=== PATIENT | female | born 1985 | race Caucasian/White ===

== ENCOUNTER 2024-03-24 17:17 | Inpatient (IN) | payer BC ==
[2024-03-24] MEDS ORDERED: NA CHLORIDE 0.9% 250 ML ONE (18:26)
--- NOTE | 2024-03-24 18:39 | RAD REPORT ---
EXAMINATION: US bilateral LOWER EXTREMITY VENOUS DOPPLER CLINICAL INDICATION: Leg pain TECHNIQUE: Sonographic evaluation of the veins of the lower extremity bilaterally formed.Grayscale, c olor and spectral analysis performed on all vessels COMPARISON: No prior exam. FINDINGS: The common femoral, superficial femoral, greater saphenous, popliteal and posterior tibial veins bila terally are compressible and demonstrate augmentation. Doppler demonstrates good flow. 2 x 1 cm anechoic structure left groin IMPRESSION: No evidence of deep venous thrombosis involving either lower extremity 2 x 1 cm anechoic structure left groin may represent a remote hematoma. Follow-up ultrasound could be obtained in 3 months for reevaluation
[2024-03-24 18:40] LABS: Specific Gravity < 1.005 (1.005-1.030); Sqamous Epithelial <5 /HPF (None Seen); Urine Bacteria <20 /HPF (<20); Urine Bilirubin NEGATIVE (Negative); Urine Blood Negative (Negative); Urine Clarity Extremely Turbid (Clear); Urine Color Colorless (Yellow); Urine Crystals Unidentified Few /HPF (None Seen); Urine Culture Reflex Order NOT NEEDED; Urine Glucose NEGATIVE (Negative); Urine Ketones NEGATIVE (Negative); Urine Microscopic Reflex YN ORDER UMIC; Urine Mucus Slight /HPF (None Seen); Urine Nitrite NEGATIVE (Negative); Urine Protein NEGATIVE (Negative); Urine RBC <5 /HPF (None Seen); Urine Urobilinogen Normal (Normal); Urine WBC <5 /HPF (<5)
[2024-03-24 18:41] LABS: Hematocrit 29.8 % (36.0-45.0); RBC Red Blood Cell Count 2.91 M/uL (3.86-4.86)
[2024-03-24 18:42] LABS: Absolute Basophils 0.1 K/uL (0-0.5); Absolute Lymphocytes (CBC) 1.5 K/uL (0.7-4.9); Absolute Monocytes 0.3 K/uL (0.1-1.3); Absolute Neutrophil 3.4 K/uL (1.8-8.0); Basophils % 1.6 % (0-1.3); Eosinophils % 0.8 % (0-4.4); Lymphocytes % 28.5 % (15.3-44.8); MCH 34.5 pg (27.0-35.0); MCHC 33.7 g/dL (32.0-36.0); MCV 102.5 fL (80-100); MPV 7.7 fL (7.6-11.3); Monocytes % 5.6 % (3.3-12.3); Neutrophils % 63.5 % (41.7-73.7); Nucleated Red Blood Cells % 0.1 % (0-0); Platelets 355 thou/uL (152-406)
[2024-03-24] MEDS ORDERED: HYDROMORPHONE HCL 1 MG/ML INJ ONE ×2 (18:53→20:34)
[2024-03-24] MEDS ORDERED: ONDANSETRON 4 MG/2 ML VIAL ONE (18:53)
[2024-03-24 19:11] LABS: Protime INR 1.17
[2024-03-24] MEDS ORDERED: DIAZEPAM 5 MG TABLET ONE (19:20)
[2024-03-24 19:29] LABS: Albumin 2.3 g/dL (3.4-5.0); Albumin/Globulin Ratio 0.7 (1.1-1.8); Anion Gap 9.5 mEq/L (5.0-15.0); Bilirubin Direct 0.2 mg/dL (0-0.2); Bilirubin Indirect, Calculated 0.2 mg/dL (0.2-0.8); Bilirubin Total 0.4 mg/dL (0.2-1.0); Globulin 3.2 g/dL (2.3-3.5); Potassium 3.5 mEq/L (3.5-5.1); Protein, Total 5.5 g/dL (6.4-8.2); Troponin High Sensitivity 6.6 pg/mL (<58.9)
--- NOTE | 2024-03-24 20:43 | RAD REPORT ---
EXAMINATION: CTA CHEST PE CLINICAL INDICATION: Shortness of breath TECHNIQUE: 100 cc 370 Isovue administered intravenously. This examination was performed according to an angiographic protocol with 3D post-processing. This involves 3D reconstructions, MIPs, volume rendered images and/or shaded surface rendering. One or more of the following dose reduction techniqu es were used: Automated exposure control, adjustment of the mA and/or kV according to patient size, and/or iterative reconstruction. Unless otherwise specified, incidental findings do not require dedic ated imaging follow-up. [id number]. COMPARISON: No prior exam. FINDINGS: A pulmonary embolus is not seen. An aortic aneurysm not noted. Small right pleural effusion. .No pericardial effusion.. Mild right hilar lymphadenopathy. Moderate patchy groundglass opacities scattered throughout the right lung. IMPRESSION: No evidence of a pulmonary embolism Moderate patchy groundglass opacities right lung may indicate aspiration pneumonitis or pneumonia.
--- NOTE | 2024-03-24 20:45 | RAD REPORT ---
Procedure: Chest Single View HISTORY: Shortness of breath COMPARISON: none FINDINGS: Patchy right lung opacities. Left lung appears clear. The heart is normal size. IMPRESSION: Patchy right lung opacities may indicate aspiration pneumonitis or pneumonia
--- NOTE | 2024-03-24 20:53 | EDPHYS ---
Physician Documentation [facility] Name: Micheline Adler Age: 38 yrs Sex: Female : 1985 Arrival Date: 03/24/2024 Time: 17:17 Bed 2 Private MD: ED Physician Teodoro Myers HPI: 03/24 18:26 This 38 yrs old Female presents to ER via Ambulatory with complaints of pieter Breathing Difficulty. 18:26 The patient has shortness of breath at rest, with light activity. Onset: The pieter symptoms/episode began/occurred 3 day(s) ago. Duration: The symptoms are continuous, and are steadily getting worse. The patient's shortness of breath is aggravated by supine position, is alleviated by rest, sitting up. Associated signs and symptoms: The patient has no apparent associated signs or symptoms. Severity of symptoms: At their worst the symptoms were mild moderate in the emergency department the symptoms are unchanged. The patient has experienced similar episodes in the past, a few times. 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 - Infectious Disease History:: Denies. - Social history:: Smoking status: Patient denies any tobacco usage or history of. ROS: 18:28 Constitutional: Negative for fever, chills, and weight loss, Eyes: Negative for injury, pieter pain, redness, and discharge, ENT: Negative for injury, pain, and discharge, Neck: Negative for injury, pain, and swelling, Cardiovascular: Negative for chest pain, palpitations, and edema, Abdomen/GI: Negative for abdominal pain, nausea, vomiting, diarrhea, and constipation, Back: Negative for injury and pain, : Negative for injury, bleeding, discharge, and swelling, Skin: Negative for injury, rash, and discoloration, Neuro: Negative for headache, weakness, numbness, tingling, and seizure, Psych: Negative for depression, anxiety, suicide ideation, homicidal ideation, and hallucinations, Allergy/Immunology: Negative for hives, rash, and allergies, Endocrine: Negative for neck swelling, polydipsia, polyuria, polyphagia, and marked weight changes, Hematologic/Lymphatic: Negative for swollen nodes, abnormal bleeding, and unusual bruising, 18:28 Cardiovascular: Positive for edema, orthopnea, 18:28 Respiratory: Positive for cough, shortness of breath, at rest. Exam: 18:28 Constitutional: This is a well developed, well nourished patient who is awake, alert, pieter and in no acute distress. Head/Face: Normocephalic, atraumatic. Eyes: Pupils equal round and reactive to light, extra-ocular motions intact. Lids and lashes normal. Conjunctiva and sclera are non-icteric and not injected. Cornea within normal limits. Periorbital areas with no swelling, redness, or edema. ENT: Nares patent. No nasal discharge, no septal abnormalities noted. Tympanic membranes are normal and external auditory canals are clear. Oropharynx with no redness, swelling, or masses, exudates, or evidence of obstruction, uvula midline. Mucous membranes moist. Neck: Trachea midline, no thyromegaly or masses palpated, and no cervical lymphadenopathy. Supple, full range of motion without nuchal rigidity, or vertebral point tenderness. No Meningismus. Chest/axilla: Normal chest wall appearance and motion. Nontender with no deformity. No lesions are appreciated. Respiratory: Lungs have equal breath sounds bilaterally, clear to auscultation and percussion. No rales, rhonchi or wheezes noted. No increased work of breathing, no retractions or nasal flaring. Abdomen/GI: Soft, non-tender, with normal bowel sounds. No distension or tympany. No guarding or rebound. No evidence of tenderness throughout. Back: No spinal tenderness. No costovertebral tenderness. Full range of motion. Skin: Warm, dry with normal turgor. Normal color with no rashes, no lesions, and no evidence of cellulitis. MS/ Extremity: Pulses equal, no cyanosis. Neurovascular intact. Full, normal range of motion., bilateral aka Neuro: Awake and alert, GCS 15, oriented to person, place, time, and situation. Cranial nerves II-XII grossly intact. Motor strength 5/5 in all extremities. Sensory grossly intact. Cerebellar exam normal. Normal gait. Psych: Awake, alert, with orientation to person, place and time. Behavior, mood, and affect are within normal limits. 18:28 Cardiovascular: Rate: normal, actual rate is 87 bpm, Rhythm: regular, Pulses: no pulse deficits are appreciated, Heart sounds: normal, Edema: is not appreciated, JVD: is not appreciated, 18:28 ECG was reviewed by the Attending Physician. 18:40 ECG was reviewed by the Attending Physician. [facility] Vital Signs: 17:20 BP 111 / 76; Pulse 80; Resp 16; Pulse Ox 96% ; cm10 17:32 BP 111 / 76; Pulse 87; Resp 18 S; Pulse Ox 100% on R/A; Weight 81.65 kg; Height 5 ft. 4 iw in. ; Pain 8/10; 18:00 BP 120 / 75; Pulse 90; Resp 17; Pulse Ox 94% ; cm10 19:00 BP 102 / 63; Pulse 77; Resp 16; Pulse Ox 94% ; cm10 20:34 BP 112 / 75; Pulse 81; Resp 16; Pulse Ox 95% ; cm10 22:15 BP 100 / 60; Pulse 73; Resp 20; Pulse Ox 100% on Nebulizer Mask; ay 22:30 BP 98 / 60; Pulse 88; Resp 16; Pulse Ox 100% ; cm10 17:32 Body Mass Index 30.90 (81.65 kg, 162.56 cm) iw 17:32 Pain Scale: Adult iw MDM: 17:23 Medical Screening Exam initiated pieter 18:29 Differential diagnosis: dislocation, contusion, abrasion, Anemia Anxiety Reaction pieter asthma, CHF exacerbation, Myocardial Infarction pneumonia, Psychogenic pulmonary edema, Pulmonary Embolism reactive airway disease, Sepsis Unstable Angina. Antibiotic administration:. Immunization status:. Data reviewed: vital signs, nurses notes, lab test result(s), EKG, radiologic studies, CT scan, doppler, plain films. Consideration of Admission/Observation Escalation of care including admission/observation considered. I considered the following discharge prescriptions or medication management in the emergency department Medications were administered in the Emergency Department. See MAR. Independent interpretation of the following test(s) in the Emergency Department EKG: See my EKG interpretation above CT Scan: My interpretation is ct pe. Test considered but Not performed: Ultrasound 2 d echo. Historians other than the Patient: Spouse/Significant Other: spouce well informed. Care significantly affected by the following chronic conditions: Obesity, on xarelto. Counseling: I had a detailed discussion with the patient and/or guardian regarding the historical points, exam findings, and any diagnostic results supporting the discharge/admit diagnosis, lab results, radiology results. 03/24 17:26 Order name: Basic Metabolic Panel; Complete Time: 19:[address] [facility] 03/24 17:26 Order name: CBC with Diff; Complete Time: 19:[address] [facility] 03/24 17:26 Order name: LFT's; Complete Time: 19:[address] [facility] 03/24 17:26 Order name: Magnesium; Complete Time: 19:[address] [facility] 03/24 17:26 Order name: NT PRO-BNP; Complete Time: 19:[address] [facility] 03/24 17:26 Order name: PT-INR; Complete Time: 19:[address] [facility] 03/24 17:26 Order name: Troponin HS; Complete Time: 19:[address] [facility] 03/24 17:26 Order name: Urinalysis w/ reflexes; Complete Time: 18:[address] [facility] 03/24 17:26 Order name: Lipase; Complete Time: 19:[address] [facility] 03/24 20:41 Order name: Blood Culture Adult (2) [facility] 03/24 21:11 Order name: Lactate w/ 2H reflex if indic. [facility] 03/24 21:11 Order name: Magnesium [facility] 03/24 21:11 Order name: Phosphorus [facility] 03/24 21:11 Order name: Basic Metabolic Panel [facility] 03/24 21:11 Order name: Basic Metabolic Panel [facility] 03/24 21:11 Order name: CBC with Automated Diff [facility] 03/24 21:11 Order name: CBC with Automated Diff [facility] 03/24 21:11 Order name: Lipid Profile [facility] 03/24 21:11 Order name: Lipid Profile [facility] 03/24 21:14 Order name: Procalcitonin [facility] 03/24 17:26 Order name: XRAY Chest (1 view) [facility] 03/24 17:26 Order name: CT Chest For PE Angio [facility] 03/24 17:39 Order name: US Extremity Venous W Compression Donny; Complete Time: 18:[address] [facility] 03/24 20:54 Order name: INCENTIVE SPIROMETRY [facility] 03/24 17:26 Order name: Cardiac monitoring; Complete Time: 18:[address] [facility] 03/24 17:26 Order name: EKG - Nurse/Tech; Complete Time: 18:[address] [facility] 03/24 17:26 Order name: IV Saline Lock; Complete Time: 18:[address] [facility] 03/24 17:26 Order name: Labs collected and sent; Complete Time: 18:[address] [facility] 12/04 17:26 Order name: O2 Per Protocol; Complete Time: 18:36 pieter 03/24 17:26 Order name: O2 Sat Monitoring; Complete Time: 18:36 pieter 04 18:45 Order name: Labs - recollect needed: blue, green; Complete Time: 19:03 iw 03/24 19:47 Order name: PO challenge: juice; Complete Time: 20:43 pieter EC:40 Rate is 77 beats/min. Rhythm is regular. QRS [place] is Normal. [place] interval is normal. QRS pieter interval is normal. QT interval is normal. No Q waves. T waves are Normal. No ST changes noted. Clinical impression: NSR w/ Non-specific ST/T Changes and No evidence of ischemia. Interpreted by me. Reviewed by me. Administered Medications: 17:39 CANCELLED (Duplicate Order): ns 0.9% 1000 ml IV at 1000 ml once; to be given as a bolus pieter over 60 minutes 18:47 Drug: NS 0.9% IV 250 ml IV at 75 ml/hr once; to be given as a bolus over 30 minutes cm10 Route: IV; Rate: 75 ml/hr; Site: left forearm; 22:24 Follow up: IV Status: Completed infusion; IV Intake: 250ml ay 19:03 Drug: HYDROmorphone IVP 1 mg IVP once Route: IVP; Site: left forearm; cm10 19:33 Follow up: Response: No adverse reaction cm10 19:03 Drug: Ondansetron IVP 4 mg IVP once; over 2 minutes Route: IVP; Site: left forearm; cm10 19:33 Follow up: Response: No adverse reaction cm10 19:27 Drug: Diazepam PO 10 mg PO once Route: PO; ay 19:32 Follow up: Response: No adverse reaction ay 20:40 Drug: HYDROmorphone IVP 1 mg IVP once Route: IVP; Site: left forearm; ay 20:43 Follow up: Response: No adverse reaction ay 21:52 Drug: Piperacillin-Tazobactam IVPB 3.375 grams IVPB once over 60 mins; (mix in NS 100 ay mL) Route: IVPB; Infused Over: 60 mins; Site: left forearm; 22:48 Follow up: Response: No adverse reaction; IV Status: Completed infusion; IV Intake: cm10 100ml 21:53 Drug: Amoxicillin-Clavulanate PO 875 mg PO once Route: PO; ay 22:14 Follow up: Response: No adverse reaction ay 22:13 Drug: Famotidine IVP 20 mg IVP once; dilute with 10 mL 0.9% NaCl; give over 2 minutes ay Route: IVP; Site: left forearm; 22:14 Follow up: Response: No adverse reaction ay 22:14 Drug: Levalbuterol Inhalation 2.5 mg Inhalation once Route: Inhalation; ay 22:50 Follow up: Response: No adverse reaction cm10 22:14 Drug: Ipratropium Inhalation Aerosol 0.5 mg Inhalation once Route: Inhalation; ay 22:14 Follow up: Response: No adverse reaction ay 22:48 Not Given (Duplicate Order): hydromorphone1 mg IVP once cm10 Disposition Summary: 03/24/24 20:53 Hospitalization Ordered Notes: Hospitalization Status: Observation pieter Provider: Prince pieter Stokes Location: Telemetry/MedSurg (observation) pieter Condition: Stable pieter Problem: an ongoing problem pieter Symptoms: have worsened pieter Bed/Room Type: Standard [facility] Room Assignment: 223(03/24/24 22:02) rv1 Diagnosis - Dyspnea pieter - Pneumonia due to other specified bacteria - aspiration, moderate patchy pieter - Chest pain, unspecified pieter - Pleurisy pieter - USP (current) use of anticoagulants - XARELTO pieter Forms: - Medication Reconciliation Form pieter - SBAR form pieter - Leadership Thank You Letter pieter Signatures: Dispatcher [employer] EDMS Teodoro Myers MD MD cha Williams, Irene, RN RN iw Villegas, Rebecca rv1 Felicia Harper RN RN cm10 Paulino Aguilar RN RN ay Corrections: (The following items were deleted from the chart) 17:26 17:26 Chest Single View+RAD.RAD.BRZ ordered. EDMS EDMS 17:26 17:26 Chest For PE Angio+CT.RAD.BRZ ordered. EDDC EDMS 17:39 17:26 NS 0.9% IV 1000 ml IV at 1000 ml once; to be given as a bolus over 60 minutes pieter ordered. pieter 20:42 20:42 BLOOD CULTURE*+BA.LAB.BRZ ordered. EDMS EDMS 22:02 20:53 pieter rv1
--- NOTE | 2024-03-24 20:53 | ER ---
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 Coronavirus screen: Client presents with at least one sign or symptom that may indicate coronavirus-19. Ebola Screen: No symptoms or risks identified at this time. Initial Sepsis Screen: Does the patient meet any 2 criteria? No. Patient's initial sepsis screen is negative. Does the patient have a suspected source of infection? No. Patient's initial sepsis screen is negative. Risk Assessment: Do you want to hurt yourself or someone else? Patient reports no desire to harm self or others. Onset of symptoms was March 14, 2024. 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 - Infectious Disease History:: Denies. - Social history:: Smoking status: Patient denies any tobacco usage or history of. Screenin:04 [facility] ED Fall Risk Assessment (Adult) History of falling in the last 3 months, cm10 including since admission No falls in past 3 months (0 pts) Confusion or Disorientation No (0 pts) Intoxicated or Sedated No (0 pts) Impaired Gait No (0 pts) Mobility Assist Device Used No (0 pt) Altered Elimination No (0 pt) Score/Fall Risk Level 0 - 2 = Low Risk Oriented to surroundings, Maintained a safe environment, Hourly rounding (assess needs \T\ fall precautionary measures) done. Abuse screen: Denies threats or abuse. Denies injuries from another. Nutritional screening: No deficits noted. Tuberculosis screening: No symptoms or risk factors identified. Assessment: 19:03 General: Appears in no apparent distress. comfortable, Behavior is calm, cooperative. cm10 Pain: Complains of pain in right leg and left leg. Cardiovascular: No deficits noted. Heart tones present Patient's skin is warm and dry. Cardiovascular: Rhythm is regular. Respiratory: Airway is patent Respiratory effort is even, unlabored, Respiratory pattern is regular, symmetrical, Breath sounds are clear bilaterally. Vital Signs: 17:20 BP 111 / 76; Pulse 80; Resp 16; Pulse Ox 96% ; cm10 17:32 BP 111 / 76; Pulse 87; Resp 18 S; Pulse Ox 100% on R/A; Weight 81.65 kg; Height 5 ft. 4 iw in. ; Pain 8/10; 18:00 BP 120 / 75; Pulse 90; Resp 17; Pulse Ox 94% ; cm10 19:00 BP 102 / 63; Pulse 77; Resp 16; Pulse Ox 94% ; cm10 20:34 BP 112 / 75; Pulse 81; Resp 16; Pulse Ox 95% ; cm10 22:15 BP 100 / 60; Pulse 73; Resp 20; Pulse Ox 100% on Nebulizer Mask; ay 22:30 BP 98 / 60; Pulse 88; Resp 16; Pulse Ox 100% ; cm10 17:32 Body Mass Index 30.90 (81.65 kg, 162.56 cm) iw 17:32 Pain Scale: Adult iw ED Course: 17:18 Patient arrived in ED. mr 17:23 Teodoro Myers MD is Attending Physician. pieter 17:23 Ashley Sams, RN is Primary Nurse. ko1 17:34 Triage completed. iw 17:35 Arm band placed on. iw 17:48 XRAY Chest (1 view) In Process Unspecified. EDMS 18:27 US Extremity Venous W Compression Donny In Process Unspecified. EDMS 18:47 Accessed peripheral vein via ultrasound, utilizing dynamic ultrasound technique Clean \T\ cm10 dry. Dressing intact. Good blood return. Flushes easily. 20G left forearm. Missed attempt(s): 20 gauge in right forearm. Bleeding controlled, band aid applied, catheter tip intact. 18:53 Radiology exam delayed due to IV insertion attempt and/or patient not having nj appropriate IV at this time. 18:53 Radiology exam delayed due to lab results not completed at this time. (BUN/Creatinine). nj 18:53 Radiology exam delayed due to test not completed at this time. nj 19:04 Patient has correct armband on for positive identification. Placed in gown. Bed in low cm10 position. Call light in reach. Side rails up X2. Provided Education on: ER process and procedures.. 19:17 Paulino Aguilar, RN is Primary Nurse. ay 20:17 CT Chest For PE Angio In Process Unspecified. EDMS 20:50 Prince Stokes MD is Hospitalizing Provider. pieter 23:23 No provider procedures requiring assistance completed. Patient admitted, IV remains in cm10 place. Administered Medications: 17:39 CANCELLED (Duplicate Order): ns 0.9% 1000 ml IV at 1000 ml once; to be given as a bolus pieter over 60 minutes 18:47 Drug: NS 0.9% IV 250 ml IV at 75 ml/hr once; to be given as a bolus over 30 minutes cm10 Route: IV; Rate: 75 ml/hr; Site: left forearm; 22:24 Follow up: IV Status: Completed infusion; IV Intake: 250ml ay 19:03 Drug: HYDROmorphone IVP 1 mg IVP once Route: IVP; Site: left forearm; cm10 19:33 Follow up: Response: No adverse reaction cm10 19:03 Drug: Ondansetron IVP 4 mg IVP once; over 2 minutes Route: IVP; Site: left forearm; cm10 19:33 Follow up: Response: No adverse reaction cm10 19:27 Drug: Diazepam PO 10 mg PO once Route: PO; ay 19:32 Follow up: Response: No adverse reaction ay 20:40 Drug: HYDROmorphone IVP 1 mg IVP once Route: IVP; Site: left forearm; ay 20:43 Follow up: Response: No adverse reaction ay 21:52 Drug: Piperacillin-Tazobactam IVPB 3.375 grams IVPB once over 60 mins; (mix in NS 100 ay mL) Route: IVPB; Infused Over: 60 mins; Site: left forearm; 22:48 Follow up: Response: No adverse reaction; IV Status: Completed infusion; IV Intake: cm10 100ml 21:53 Drug: Amoxicillin-Clavulanate PO 875 mg PO once Route: PO; ay 22:14 Follow up: Response: No adverse reaction ay 22:13 Drug: Famotidine IVP 20 mg IVP once; dilute with 10 mL 0.9% NaCl; give over 2 minutes ay Route: IVP; Site: left forearm; 22:14 Follow up: Response: No adverse reaction ay 22:14 Drug: Levalbuterol Inhalation 2.5 mg Inhalation once Route: Inhalation; ay 22:50 Follow up: Response: No adverse reaction cm10 22:14 Drug: Ipratropium Inhalation Aerosol 0.5 mg Inhalation once Route: Inhalation; ay 22:14 Follow up: Response: No adverse reaction ay 22:48 Not Given (Duplicate Order): hydromorphone1 mg IVP once cm10 Medication: 23:23 VIS not applicable for this client. cm10 Intake: 22:24 IV: 250ml; Total: 250ml. ay 22:48 IV: 100ml; Total: 350ml. cm10 Outcome: 20:53 Decision to Hospitalize by Provider. pieter 23:23 Admitted to Med/surg accompanied by tech, via wheelchair, room 223, cm10 23:23 Condition: good 23:23 Instructed on the need for admit, 23:24 Patient left the ED. cm10 Signatures: Dispatcher [employer] EDTeodoro Jameson MD MD cha Rivera, Mary, Reg Reg mr Kim Montemayor, RN Srinath Santos Kathy, RN RN ko1 Martinez, Clarissa, RN RN cmPaulino Gandhi RN ALEXUS isaac Corrections: (The following items were deleted from the chart) 17:35 17:32 Chief complaint: Patient states: had a lipoma removed a week and half ago, has hx iw of GERD, felt like she aspirated after the surgery, had low O2 sats, has been on antibiotics, still feels SOB iw
[2024-03-24] MEDS ORDERED: AMOX/K CLAV 875 MG TAB ONE (20:54)
[2024-03-24] MEDS ORDERED: PIPERACIL/TAZO 3.375 GM VIAL IV ONE (20:55)
[2024-03-24] MEDS ORDERED: NA CHLORIDE 0.9% 100 ML ONE (20:55)
[2024-03-24] MEDS ORDERED: ACETAMINOPHEN 500 MG TAB PO PRN (21:07)
[2024-03-24] MEDS ORDERED: ALBUTEROL 2.5 MG/3 ML NEB SOL NEB PRN (21:07)
[2024-03-24] MEDS ORDERED: IPRATROPIUM BROM 0.5MG/2.5ML NEB PRN (21:07)
[2024-03-24] MEDS ORDERED: ONDANSETRON 4 MG/2 ML VIAL IV PRN (21:07)
--- NOTE | 2024-03-24 21:32 | P.HP ---
Certification for Inpatient Patient admitted to: Inpatient With expected LOS: >2 Midnights Practitioner: I am a practitioner with admitting privileges, knowledge of patient current condition, hospital course, and medical plan of care. 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 She also has a history of GERD and suspected esophageal motility disorder. She suspects she aspirated 5 days ago. She developed subjective fever, chills, shortness of breath. She gave herself a dose of IM ceftriaxone followed by a short course of Zpack. Unfortunately, her symptoms persisted. CTA chest ruled out PE but revealed aspiration PNA. Physical Examination - Physical Exam General: Acute distress HEENT: Atraumatic, Normocephalic Respiratory: Normal air movement Cardiovascular: No edema, Normal pulses, Regular rate/rhythm, Normal S1 S2 Musculoskeletal: No clubbing, No swelling, No contractures, No erythema, No ten derness, No warmth Integumentary: No rashes, No breakdown, No significant lesion, No tenderness/swelling, No erythema, No warmth Neurological: Normal speech - Studies Laboratory Data (last 24 hrs) 03/24/24 03/24/24 03/24/24 19:01 19:01 18:30 WBC 5.40 Hgb 10.0 L Hct 29.8 L Plt Count 355 PT 13.0 H INR 1.17 Sodium 144 Potassium 3.5 BUN 6 L Creatinine 0.54 L Glucose 65 L Magnesium 2.0 Total Bilirubin 0.4 AST 22 ALT 26 Alkaline Phosphatase 158 H Lipase 17 Assessment and Plan - Problems (Diagnosis) (1) Aspiration pneumonia due to gastric secretions Current Visit: Yes Status: Acute (2) GERD (gastroesophageal reflux disease) Current Visit: Yes Status: Acute (3) Esophageal motility disorder Current Visit: Yes Status: Acute - Plan Assessment Patient is 38 year old female currently being admitted for community acquired PNA after she failed outpatient therapy with IM ceftraixone and a short course of Azithromycin Aspiration pneumonia/pneumonitis GERD Esophageal motility disorder PLAN: Will admit inpatient Start Unasyn Follow blood cx sent by ER Sputum cx ordered IV PPI Patient is followed by GI as outpatient. 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 Patient wishes to take her pain meds brought from home. - Advance Directives Does patient have a Living Will: No Does patient have a Durable POA for Healthcare: No
[2024-03-24] MEDS ORDERED: SODIUM CHLORIDE 0.9% 10ML INJ IV PRN (21:37)
[2024-03-24] MEDS ORDERED: IPRATROPIUM BROM 0.5MG/2.5ML ONE (21:59)
[2024-03-24] MEDS ORDERED: LEVALBUTEROL 1.25 MG/3 ML NEB ONE (21:59)
[2024-03-24] MEDS ORDERED: FAMOTIDINE 20 MG/2 ML VIAL IV ONE (22:00)
[2024-03-25] MEDS: AMPICILLIN/SULBACT 3 GM in NA CHLORIDE 0.9% 100 ML IVPB SCH
[2024-03-25] MEDS: ALPRAZOLAM 1 MG TABLET ONE (00:10)
[2024-03-25] MEDS: PANTOPRAZOLE 40 MG INJ ONE (00:10)
[2024-03-25] MEDS: RIVAROXABAN 20 MG TABLET PO ONE (00:10)
[2024-03-25] MEDS: NA CHLORIDE 0.9% 1,000 ML ONE (00:10)
[2024-03-25] MEDS: AMPICILLIN/SULBACTAM 3GM/VIAL ONE (00:11)
[2024-03-25] MEDS: NA CHLORIDE 0.9% 100 ML ONE (00:11)
[2024-03-25] MEDS: HOME MED 1 EA UNK (Fluoxetine Hcl [Fluoxetine Hcl] 60 MG Tablet) PO SCH (00:15)
[2024-03-25] MEDS: RIVAROXABAN 20 MG TABLET PO SCH (00:19)
[2024-03-25] MEDS: ALPRAZOLAM 1 MG TABLET PO SCH (00:20)
[2024-03-25] MEDS: PANTOPRAZOLE 40 MG INJ IVP SCH (00:20)
[2024-03-25] MEDS: NA CHLORIDE 0.9% 1,000 ML IV SCH (00:21)
[2024-03-25] MEDS: FLUOXETINE 20 MG CAP ONE (00:23)
[2024-03-25 01:43] VITALS: BMI 32.5
[2024-03-25] MEDS: FLUOXETINE 20 MG CAP PO SCH (06:00)
[2024-03-25] MEDS ORDERED: OXYCODONE *CR* 10 MG TAB PO SCH (07:00)
[2024-03-25 07:42] LABS: Absolute Lymphocytes (CBC) 1.9 K/uL (0.7-4.9); Absolute Monocytes 0.3 K/uL (0.1-1.3); Absolute Neutrophil 2.1 K/uL (1.8-8.0); Basophils % 0.9 % (0-1.3); Eosinophils % 0.8 % (0-4.4); Hematocrit 24.2 % (36.0-45.0); Hemoglobin 8.1 g/dL (12.0-15.0); Lymphocytes % 43.5 % (15.3-44.8); MCH 34.2 pg (27.0-35.0); MCHC 33.3 g/dL (32.0-36.0); MCV 102.7 fL (80-100); MPV 7.4 fL (7.6-11.3); Monocytes % 7.4 % (3.3-12.3); Neutrophils % 47.4 % (41.7-73.7); Platelets 282 thou/uL (152-406); RBC Red Blood Cell Count 2.36 M/uL (3.86-4.86); Red Cell Distribution Width 13.1 % (12.1-15.2)
[2024-03-25 07:52] LABS: Anion Gap 6.5 mEq/L (5.0-15.0); Phosphorus 4.2 mg/dL (2.5-4.9); Potassium 3.5 mEq/L (3.5-5.1)
[2024-03-25] MEDS: CETIRIZINE HCL 5 MG TABLET PO SCH (08:15)
[2024-03-25] MEDS: ENOXAPARIN 40 MG/0.4 ML SQ SCH (08:15)
[2024-03-25] MEDS ORDERED: HOME MED 1 EA UNK (Omeprazole [Prilosec] 40 MG Capsule.Dr) PO SCH (09:00)
[2024-03-25 09:29] VITALS: O2SAT 95
[2024-03-25] MEDS: MORPHINE 4 MG/ML SYR ONE (09:59)
[2024-03-25] MEDS: MORPHINE 4 MG/ML SYR IV PRN (10:07)
--- NOTE | 2024-03-25 10:51 | P.DS ---
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 She also has a history of GERD and suspected esophageal motility disorder. She suspects she aspirated 5 days ago. She developed subjective fever, chills, shortness of breath. She gave herself a dose of IM ceftriaxone followed by a short course of Zpack. Unfortunately, her symptoms persisted. CTA chest ruled out PE but revealed aspiration PNA. She was admitted on general medical floor. Hospital Course: She was started on Unasyn and nebulizer, she has a good oxygenation 95% by pulse oximetry on room air, remained afebrile, no leukocytosis. She will be discharged with Augmentin 875/125 twice daily for 5 days along with albuterol inhaler as needed for shortness of breath. She is to follow with her GI doctor after discharge. #1 aspiration pneumonia with no sepsis CTA of the chest, chest x-ray showed mild infiltration of the right lung field. #2 history of esophageal motility disorder with GERD #3 acute on chronic anemia after recent cosmetic surgery. Hemoglobin down to 8.1 from 10.0, no clinical bleeding, no transfusion indicated. Vital Signs/Physical Exam: Temp Pulse Resp BP Pulse Ox 97.7 F 85 18 88/50 L 95 03/25/24 04:00 03/25/24 04:00 03/25/24 10:32 03/25/24 04:00 03/25/24 10:32 Laboratory Data at Discharge: WBC 4.30 thou/uL (4.3-10.9) 03/25/24 07:26 Hgb 8.1 g/dL (12.0-15.0) L D 03/25/24 07:26 Hct 24.2 % (36.0-45.0) L 03/25/24 07:26 Plt Count 282 thou/uL (152-406) 03/25/24 07:26 PT 13.0 SECONDS (9.4-12.5) H 03/24/24 19:01 INR 1.17 03/24/24 19:01 Sodium 142 mEq/L (136-145) 03/25/24 07:26 Potassium 3.5 mEq/L (3.5-5.1) 03/25/24 07:26 BUN 6 mg/dL (7-18) L 03/25/24 07:26 Creatinine 0.51 mg/dL (0.55-1.02) L 03/25/24 07:26 Glucose 85 mg/dL (74-106) 03/25/24 07:26 Phosphorus 4.2 mg/dL (2.5-4.9) 03/25/24 07:26 Magnesium 2.0 mg/dL (1.6-2.4) 03/25/24 07:26 Total Bilirubin 0.4 mg/dL (0.2-1.0) 03/24/24 19:01 AST 22 U/L (15-37) 03/24/24 19:01 ALT 26 U/L (13-56) 03/24/24 19:01 Alkaline Phosphatase 158 U/L (45-117) H 03/24/24 19:01 Triglycerides 31 mg/dL (<150) 03/25/24 07:26 Cholesterol 106 mg/dL (<200) 03/25/24 07:26 HDL Cholesterol 64 mg/dL (40-60) H 03/25/24 07:26 Cholesterol/HDL Ratio 1.66 03/25/24 07:26 Lipase 17 U/L (13-75) 03/24/24 19:01 Home Medications: Alprazolam [Xanax] 1 mg PO BEDTIME 03/24/24 Cetirizine HCl [Zyrtec] 10 mg PO DAILY 03/24/24 Chlorpromazine HCl [Thorazine*] 10 mg PO BEDTIME 03/24/24 Fluoxetine HCl 60 mg PO 1X 03/24/24 Omeprazole [Prilosec] 40 mg PO BID 03/24/24 Oxycodone HCl [Oxycodone HCl ER] 10 mg PO 6XD 03/24/24 Rivaroxaban [Xarelto] 20 mg PO 1X 03/24/24 Albuterol Inhaler [Ventolin Inhaler*] 2 puff IH Q6H PRN #1 03/25/24 Amox/Clavulanate [Augmentin 875-125 Tab] 875 mg PO BID 5 Days #10 tab 03/25/24 Ropinirole HCl [Requip] 2 mg PO BEDTIME 03/25/24 New Medications: Amox/Clavulanate [Augmentin 875-125 Tab] 875 mg PO BID 5 Days #10 tab Albuterol Inhaler [Ventolin Inhaler*] 2 puff IH Q6H PRN #1 PRN Reason: Shortness Of Breath Diet: [place] Activity: Ad nadeem Followup: NONE,NONE [Primary Care Provider] -
[2024-03-25 12:45] VITALS: BP 93/50; TEMP 98.6
[2024-03-25] MEDS ORDERED: PANTOPRAZOLE 40MG TABLET PO SCH (16:30)
[2024-03-25] MEDS ORDERED: ROPINIROLE HCL 1 MG TAB PO SCH (21:00)
[2024-03-25] MEDS ORDERED: CHLORPROMAZINE 10 MG TAB PO SCH (21:00)
== END 2024-03-25 13:55 | disposition home or self-care (01) | DRG 179 ==
LOC: ER 17:17 → ERHOLD 21:07 → 2ND 22:43
PROVIDERS: ADMIT Internal Medicine; ATTEND Internal Medicine
DX: J69.0 Pneumonitis due to inhalation of food and vomit (principal); K30 Functional dyspepsia; E66.9 Obesity, unspecified; K22.9 Disease of esophagus, unspecified; D64.89 Other specified anemias; K21.9 Gastro-esophageal reflux disease without esophagitis; Z88.1 Allergy status to other antibiotic agents; Z68.32 Body mass index [BMI] 32.0-32.9, adult; Z79.01 Long term (current) use of anticoagulants; Z79.899 Other long term (current) drug therapy
CPT/HCPCS: 36415; 71045; 71275; 80048; 80061; 80076; 81001; 83605; 83690; 83735; 83880; 84100; 84484; 85025; 85610; 87040; 93970; 94760; 96365; 96366; 96375; 99285; J0295; J1171; J1650; J2405; J2470; J2543; J7030; J7050; J7614; J7644; Q0161; Q9967